=== PATIENT | male | born 1935 | race Caucasian/White ===

== ENCOUNTER 2023-11-30 17:54 | Inpatient (IN) | payer OTHER, SELFPAY ==
[2023-11-30] VITALS (7 sets, daily range): BP systolic 132–170; BP diastolic 54–96; BMI 27.5
[2023-11-30 14:34] LABS: % Basophils 0.3 % (0-2); % Eosinophils 0.8 % (0-6); % Immature Granulocytes 0.3 % (0-0.5); % Lymphocytes 29.7 % (20.5-51.1); % Monocytes 6.3 % (1.7-9.3); % Neutrophils 62.6 % (42.2-75.2); Absolute Eosinophils 0.1 10^3/uL (0-0.7); Absolute Lymphocytes 2.2 10^3/uL (1.2-3.4); Absolute Monocytes 0.5 10^3/uL (0.1-0.6); Absolute Neutrophils 4.6 10^3/uL (1.4-6.5); Hemoglobin 14.3 g/dL (13.0-18.0); Mean Corp Hgb Conc. 36.7 g/dL (33.0-37.0); Mean Corpuscular Hgb 33.7 pg (27.0-31.0); Mean Platelet Volume 10.8 fL (7.4-10.4); Nucleated Red Blood Cells % 0 % (-); Platelet Count 225 10^3/uL (130-400); Red Blood Cell Count 4.24 10^6/uL (4.70-6.10); Red Cell Dist. Width 13.5 % (11.5-14.5); White Blood Cell Count 7.3 10^3/uL (4.8-10.8)
[2023-11-30 14:38] LABS: INR 1.33; PT 16.3 Sec (11.4-14.6)
[2023-11-30 14:39] LABS: APTT 33.8 Sec (23.4-35.0)
[2023-11-30 14:48] LABS: ALT (SGPT) 24 U/L (0-50); AST (SGOT) 33 U/L (17-59); Albumin 4.5 g/dl (3.5-5.0); Alkaline Phosphatase 84 U/L (38-126); Blood Urea Nitrogen 22 mg/dl (9-20); Calcium 9.5 mg/dl (8.4-10.2); Carbon Dioxide 30 mmol/L (22-30); Chloride 102 mmol/L (98-107); Glucose 96 mg/dl (70-99); Potassium 4.1 mmol/L (3.5-5.1); Sodium 137 mmol/L (135-145); Total Bilirubin 0.9 mg/dl (0.2-1.3); Total Protein 7.5 g/dl (6.3-8.2); eGFR 53.17
[2023-11-30 15:00] LABS: Troponin I < 0.012 ng/ml
--- NOTE | 2023-11-30 15:30 | ED.GENMED ---
History of Present Illness
General
Chief Complaint: Breathing Problem
Time Seen by Provider: 11/30/23 15:20
Travel History
Have you had any contact with someone who has COVID-19?: No
Do you have any symptoms of coronavirus? Fever > 100 degrees, chills, cough, shortness of breath, sore throat, loss of taste or smell, muscle aches, or headache?: No
History of Present Illness
History of Present Illness:
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 The patient's had 1
month of exertional chest pain that resolves at rest. He he had an outpatient nuclear stress test that showed abnormal wall motion and thus he was sent to the emergency department. He is not affiliated with any [facility] groups.
Denies any current chest pain at rest. Did take his Eliquis this morning
Review of Systems
Review of Systems
Allergies reviewed?: Yes
All Other Systems: ROS reviewed and negative except as documented in HPI and ROS
Phy Exam
Physical Exam
Physical Exam:
GEN: Well appearing, NAD, WDWN
HEENT: Oral mucosa moist, no scleral icterus
Cardiac: Regular rate
Lung: No respiratory distress, no tachypnea
MSK: No gross deformity or injuries
Skin: Good color, no pallor or jaundice, no rashes
Neuro: AO x3, moves all extremities freely
Psych: Calm, cooperative
Scores
Heart Failure Risk
Heart Failure Risk Score: Not Applicable
Course
Orders/Labs/Results
Orders:
Orders
11/30/23 14:01
Electrocardiogram (*1) Urgent
Reason for Study: Bradycardia / Tachycardia
EKG- Treatment ONCE
11/30/23 14:12
Complete Blood Count/With Diff Urgent
Comprehensive Metabolic Panel Urgent
Protime/PTT Urgent
Troponin I Urgent
11/30/23 16:16
Aspirin 325 mg PO NOW STA
11/30/23 16:43
Admit/Transfer Patient As Directed
Co-Sign Provider:
Level of Care: Inpatient admission
Assign to:: IVU
Physician / Group: Dr. Sykes
Diagnosis: unstable angina
Reason for Hospitalization: unstable angina
Expected length of stay greater than two midnights?: Yes
ELOS- Estimated Length of Stay in days: 3
I certify the patient meets the requirements for IP care: Yes
11/30/23 17:01
PTT Urgent
Comment: Obtain baseline before beginning heparin infusion if not already collected
Heparin 4,000 units IV NOW STA
Heparin Protocol- PTT Orders As Directed
PTT per Heparin protocol: -Obtain CBC and baseline PTT - if not already collected.
-Obtain PTT 6 hours from start of infusion. Then, every 6 hours until 2 consecutive
PTT's are therapeutic. Then, PTT Daily.
-With each rate change, obtain PTT every 6 hours until 2 consecutive PTT's are
therapeutic. Then, PTT Daily.
Notify MD As Directed
Notify physician if: PTT is greater than or equal to 200.
11/30/23 17:15
Heparin 20714 Units/250 ml 25,000 units in 250 ml IV PER PROTOCOL
Weight to be used for heparin protocol in kilograms (kg):: 76.1
Protocol:: Cardiac Tx/Acute Coronary
PTT Goal Range to be used:: PTT 73 to 111 seconds
Order type:: Initial
INITIAL Infusion Dose (UNITS/KG/hr) & then follow protocol:: 12 units/kg/hr
Infusion Dose in UNITS/hr & then follow protocol (UNITS/hr):: 900
INFUSION RATE in mL/hr & then follow protocol (mL/hr):: 9
PTT less than or equal to 64 seconds:: Increase rate by 200 units/hr (+ 2 mL/hr)
PTT 64.1 to 72.9 seconds:: Increase rate by 100 units/hr (+ 1 mL/hr)
PTT 73 to 111 seconds:: Target Range. No change in rate.
PTT 111.1 to 130.9 seconds:: Decrease rate by 100 units/hr (- 1 mL/hr)
PTT 131 to 199.9 seconds:: HOLD for 1 hr. Then decrease rate by 200 units/hr (- 2 mL/hr)
PTT greater than or equal to 200 seconds:: HOLD for 2 hrs & Notify Provider. Then decrease by 200 units/hr (-
2 mL/hr)
Lab follow-up:: Each change, PTT q6h until 2 consecutive are therapeutic. Then PTT
daily.
12/01/23 08:00
Aspirin Chewable [Low Strength Aspirin] 81 mg PO DAILY
12/02/23 06:00
Complete Blood Count/No Diff Q2D
Comment: Notify MD if platelet count is <130,000 or decreases by 50% from baseline
12/04/23 06:00
Complete Blood Count/No Diff Q2D
Comment: Notify MD if platelet count is <130,000 or decreases by 50% from baseline
12/06/23 06:00
Complete Blood Count/No Diff Q2D
Comment: Notify MD if platelet count is <130,000 or decreases by 50% from baseline
12/08/23 06:00
Complete Blood Count/No Diff Q2D
Comment: Notify MD if platelet count is <130,000 or decreases by 50% from baseline
12/10/23 06:00
Complete Blood Count/No Diff Q2D
Comment: Notify MD if platelet count is <130,000 or decreases by 50% from baseline
12/12/23 06:00
Complete Blood Count/No Diff Q2D
Comment: Notify MD if platelet count is <130,000 or decreases by 50% from baseline
12/14/23 06:00
Complete Blood Count/No Diff Q2D
Comment: Notify MD if platelet count is <130,000 or decreases by 50% from baseline
12/16/23 06:00
Complete Blood Count/No Diff Q2D
Comment: Notify MD if platelet count is <130,000 or decreases by 50% from baseline
Abnormal Lab Results
11/30/23
14:12
RBC 4.24 L 10^6/uL
(4.70-6.10)
MCH 33.7 H pg
(27.0-31.0)
MPV 10.8 H fL
(7.4-10.4)
PT 16.3 H Sec
(11.4-14.6)
BUN 22 H mg/dl
(9-20)
11/30/23 14:12
11/30/23 14:12
Vital Signs
Initial and Last Documented VS:
Initial Vital Signs
Temp Pulse Resp BP Pulse Ox
97.2 F 45 18 154/79 100
11/30/23 14:00 11/30/23 14:00 11/30/23 14:00 11/30/23 14:00 11/30/23 14:00
Last Documented Vital Signs
Temp Pulse Resp BP Pulse Ox
97.2 F 46 17 149/96 100
11/30/23 14:00 11/30/23 15:38 11/30/23 15:38 11/30/23 15:38 11/30/23 15:38
MDM/Problems Addressed
MDM/Problems Addressed:
Due to abnormal stress test the patient will require admission to the cardiology service for intervention
Comment
Comment:
EKG independently interpreted by me shows a sinus bradycardia at [address] changes concerning for acute ischemia
*Critical Care Note
Total Time (30-74mins, 75-104mins- exclusive of procedures): Not Applicable
ED Attending Note
-
Portions of this chart may have been created with voice recognition software.� Occasional wrong word or��sound alike� substitutions may have occurred due to the inherent limitations of voice recognition software.
Discharge Plan
Departure
Patient Disposition: Admit
Date of Disposition: 11/30/23
Time of Disposition: 15:30
Admit to: IVU
Presentation/result/management discussed w/ accepting MD/DO: Cardiology
Discharge Problem:
Stable angina
Interventions
Interventions:
*Risk Screen - Suicide Last Done: 11/30/23 14:00
*General Assessment Last Done: 11/30/23 14:00
*Neglect/Abuse Screening Last Done: 11/30/23 14:00
ED- Fall Risk Assessment Last Done: 11/30/23 15:36
*ED COVID-19 Vaccine History Last Done: 11/30/23 14:00
ED- Cardiac Assessment Last Done: 11/30/23 15:36
ED- Pulmonary Assessment Last Done: 11/30/23 15:36
--- NOTE | 2023-11-30 15:58 | PHANOTE ---
11/30/2023, [employer] rec tech, spoke to pt. to obtain their med. history; pt. states to be taking Dupixent 300 mg SC [id number] and Restasis 0.05% (1 drop both eyes BID); however, I could not find these meds. in pharmacy fill data and pt. has no [facility] records
so I could not confirm them.
--- NOTE | 2023-11-30 16:29 | HPS.HSE ---
Addendum entered and electronically signed by Bunny Sykes MD 11/30/23 17:10:
88 yo male with PMH of paroxysmal A fib, heart murmur, presents to ED with history of DAVILA and chest discomfort on exertion. He had a stress test today at [facility] with reversible anterior defect consistent with ischemia in LAD territory. Exam
with RRR, III/ systolic murmur at apex, and no edema. I reviewed the stress test images. Cr 1.3.
Unstable angina. Hold eliquis. ASA 324mg and heparin drip. Plan for cath tomorrow.
We have requested a copy of his recent echo from last week given heart murmur on exam.
Original Note:
Family Physician
-
Family Physician: Ana Ridley NP
Chief Complaint
-
chest discomfort, abnormal stress test
History of Present Illness
88 y/o male with hypertension, AFIB on Eliquis (paroxysmal), hx prostate CA 2000 (hx radiation), gastritis on PPI, bradycardia, who has been having chest discomfort and DAVILA for about 1 year, but then over the past 3-4 weeks it has worsened and
become more noticeable. Once, it even happened at night at rest, but resolved after 3-5 minutes without intervention. Today, he went for a stress test, which showed reversible anterior defect and his woods laborer, Dr. Denis sent him to the
[facility].
Medical History
Past Medical History
Past Medical History: Reports Cancer, HTN and Other (as above)
Past Surgical History: Reports None
Social History
Tobacco: Former Smoker (pipe quit 1999)
Alcohol: Occasional
Personal:
Living: With Family
Family History
Family History: Early CAD (mom [place] age 59)
Allergies / Home Medications
Allergies reflects when Allergies were last updated in [facility].
Home Medications with original date entered in [employer]
Allergy/Medication List:
Allergies: denies
Medications: Eliquis 5 mg PO BID, guaifenesin 400 mg PO daily, metoprolol succinate 12.5 mg PO daily, omeprazole 20 mg PO daily, lisinopril/HCTZ 1 tab PO daily
Review of Systems
-
History Source: Patient
A 12 point ROS was completed and negative except as noted: Yes
Respiratory: Reports Trouble Breathing
Cardiac: Reports Chest Pain
Physical Exam
Vital Signs
Vital Signs
Temp Pulse Resp BP Pulse Ox
97.2 F 46 17 149/96 100
11/30/23 14:00 11/30/23 15:38 11/30/23 15:38 11/30/23 15:38 11/30/23 15:38
Physical Exam
General: Well Developed, Well Nourished and No Apparent Distress
HEENT: NormoCephalic and Anicteric
Respiratory: Clear and Non Labored Respirations
Cardiac: Regular Rhythm and Murmur
GI: Soft, Non Tender and Normal Bowel Sounds
Skin: Warm and Dry
Neuro: AO x 3
Psych: Calm
Laboratory Results
-
11/30/23 14:12
11/30/23 14:12
Laboratory Results
PT 16.3 Sec (11.4-14.6) H 11/30/23 14:12
INR 1.33 11/30/23 14:12
APTT 33.8 Sec (23.4-35.0) 11/30/23 14:12
Total Bilirubin 0.9 mg/dl (0.2-1.3) 11/30/23 14:12
AST 33 U/L (17-59) 11/30/23 14:12
ALT 24 U/L (0-50) 11/30/23 14:12
Alkaline Phosphatase 84 U/L (38-126) 11/30/23 14:12
Troponin I < 0.012 ng/ml 11/30/23 14:12
Data Reviewed
-
Medical Tests (Nuc Med, Echo, EKG etc): Image Personally Visualized and interpreted (EKG SB 47 BPM, NSST/T abnormality) and Other (stress test images reviewed by Dr. Sykes)
Lab Data: Labs Reviewed by me
Impression/Plan
-
IMPRESSION/PLAN:
Unstable angina:
-this diagnosis is threat to life
-patient with typical angina, that has been progressing over the past 3-4 weeks
-now with stress imaging with reversible anterior defect (images in chart)
-no CP currently
-ASA full dose now, then 81 mg daily
-start heparin gtt, which requires intensive monitoring for toxicity
-add statin, as well as lipids, hgbA1C
-cath tomorrow- last dose Eliquis this AM
-check echo- murmur noted as well
-follow trops, EKG's
PAF:
-stable in SB
-continue low dose metoprolol
-hold Eliquis for cath- last dose this AM. [id number] score is 4 for age, HTN, and now CAD.
-start heparin drip as above
HTN:
-continue ACEI/HCTZ/BB and follow
[2023-11-30] MEDS: ASPIRIN 325 MG PO (16:42)
[2023-11-30] MEDS: HEPARIN 4000 UNITS IV (18:36)
[2023-11-30] MEDS: HEPARIN 25000 UNITS/250 ML IV (18:42)
[2023-11-30 18:57] LABS: APTT 33.7 Sec (23.4-35.0)
--- NOTE | 2023-11-30 19:45 | PTCARENOTE ---
received pt from ED into IVU rm [id number]. heparin gtt infusing per order in PIV. pt A&Ox4. pt denies pain at this time. sinus asael on tele-monitor. palpable peripheral pulses. no edema noted. lungs clear on auscultation. POX 100% on RA. abd s/n. +BS.
voiding in toilet. see worklist for complete nursing assessment, interventions, VS, and I&Os.
[2023-11-30] MEDS: LIPITOR 40 MG PO (21:30)
[2023-11-30 21:32] LABS: Troponin I 0.014 ng/ml
[2023-12-01] VITALS (19 sets, daily range): BP systolic 138–185; BP diastolic 61–80
[2023-12-01 00:59] LABS: APTT 181.8 Sec (23.4-35.0)
[2023-12-01 01:01] LABS: Troponin I 0.016 ng/ml
[2023-12-01 05:17] LABS: Hematocrit 38.4 % (39.0-52.0); Mean Corp Hgb Conc. 36.5 g/dL (33.0-37.0); Mean Corpuscular Hgb 34.2 pg (27.0-31.0); Mean Corpuscular Volume 93.9 fL (80.0-94.0); Mean Platelet Volume 10.7 fL (7.4-10.4); Platelet Count 203 10^3/uL (130-400); Red Blood Cell Count 4.09 10^6/uL (4.70-6.10); Red Cell Dist. Width 13.2 % (11.5-14.5); White Blood Cell Count 6.4 10^3/uL (4.8-10.8)
[2023-12-01 05:49] LABS: Blood Urea Nitrogen 26 mg/dl (9-20); Calcium 9.3 mg/dl (8.4-10.2); Carbon Dioxide 27 mmol/L (22-30); Chloride 101 mmol/L (98-107); Estimated Creatinine Clearance 38 ml/min; Glucose 98 mg/dl (70-99); HDL Cholesterol 37 mg/dl; LDL Cholesterol, Calculated 99 mg/dl; Potassium 4.1 mmol/L (3.5-5.1); Sodium 136 mmol/L (135-145); Total Cholesterol 160 mg/dl (50-199); Triglyceride 120 mg/dl (10-149); Very Low Density Lipoprotein 24 mg/dl (0-30); eGFR 58.53
--- NOTE | 2023-12-01 07:21 | ITS.CL.CATH ---
Salvage Inspector - Catheterization
Cardiac Catheterization
Procedure Report:
CARDIAC CATHETERIZATION REPORT
Date of Procedure: 12/01/2023
Referring: Clyde Denis DO
Indication: Unstable angina with recent ischemic stress test and underlying hypertrophic obstructive cardiomyopathy
HEMODYNAMIC DATA
AO: 107/60
LV: 221/15
There is a 114 mmHg resting gradient across the left ventricular outflow tract.
LEFT VENTRICULOGRAPHY: Not done
CORONARY ANGIOGRAPHY
Dominance: Right
Left Main: Normal
LAD: 99% mid LAD stenosis distal to the takeoff of the first septal supervisor [employer] and first diagonal branch. There is DICKSON II flow to the apical LAD. There is a second area of mid LAD stenosis immediately distal to the takeoff of the large second
diagonal branch.
Circumflex: 30% mid circumflex stenosis distal to the takeoff of the large OM 2. The remainder the circumflex system has mild luminal irregularities.
RCA: Dominant vessel with 20% proximal and 30-40% mid stenoses. The RCA terminates with a large PDA.
Angioplasty: At the conclusion the diagnostic study, the patient underwent LAD PCI. Heparin was used for anticoagulation. Plavix 600 mg was administered to the procedure conclusion. A 6 Faroese EBU 3.75 guide catheter was advanced to the left
coronary ostium. A BMW wire was advanced into the distal LAD. A second BMW was advanced into the large D2 as we would need to cover the origin of D2 with the stent. Direct stenting with a 3.25 x 23 Xience DEBBIE deployed at 14 laura to cover both
lesions was followed by postdilatation with a 3.25 NC trek to 17 laura along the entire length of the stent. We then used a 3.5 x 8 NC trek to post dilate to 14 laura most proximally, 10 laura in the midportion, and 8 8 laura more distally. The final
angiographic result was outstanding. Plaque shift into the large diagonal branch did not cause decremental flow.
Closure Device: None-the procedure was performed via the right radial artery. The Fly's test was normal prior to the procedure.
Radiation (mGy): 290
DAP (cm2.Gy): 17.4
Fluoroscopy time: 8.6 minutes
CONCLUSIONS
1: Hypertrophic obstructive cardiomyopathy with resting gradient 114 mmHg
2: Severe single-vessel LAD disease as described
3. Successful stenting of 99% and 60% mid LAD lesions using a single 3.25 x 23 Xience DEBBIE postdilated with a 3.25 noncompliant balloon followed by a 3.5 noncompliant balloon
4. We will treat with triple therapy (Eliquis, aspirin, Plavix) for 1 week then Eliquis/Plavix for 12 months
Copy to: Clyde Denis DO, GLEN Fried ([place], [place])
Arron Murphy MD, FACC, [facility]
[2023-12-01] MEDS: LOW STRENGTH ASPIRIN 81 MG PO (07:44)
[2023-12-01] MEDS: TOPROL XL 12.5 MG PO (07:44)
[2023-12-01] MEDS: ZESTRIL 10 MG PO (07:44)
[2023-12-01] MEDS: PROTONIX 40 MG PO (07:44)
[2023-12-01] MEDS: ORETIC 12.5 MG PO (07:44)
[2023-12-01] MEDS: THERAGRAN 1 TABLET PO (07:45)
[2023-12-01] MEDS: MUCINEX 600 MG PO (07:45)
--- NOTE | 2023-12-01 08:27 | PTCARENOTE ---
Rec'd pt from prev nsg shift AAOx3 w/no c/o CP or SOB. VS stable. Pt w/Heparin drip was infusing as ordered & stopped at 0810 when vat house laborer RNs came to take pt for cardiac cath. Report given to Joann from the vat house laborer. Pt transported in bed. Plan
of care ongoing.
[2023-12-01 08:37] LABS: Glycohemoglobin (HgbA1c) 5.6 % (4.0-5.6)
[2023-12-01 08:49] LABS: ACT-LR - POC 305 Seconds (116-155)
--- NOTE | 2023-12-01 09:20 | PTCARENOTE ---
Rec'd report from Joann in laborer heading & rec'd pt back in the room at approx 9:25am. Pt AAOx3 but a little 'foggy'. Pt's had called & stated that the pt 'usually has delayed arousal post procedures'. Pt stated he 'feels off' & that 'he didn't
remember getting anesthesia or the procedure'. Pt reports no CP or SOB. R radial band in place w/SpO2 of 92-95% on RA. Discussed bedrest for now w/pt & when the R band would be removed. Pt agrees w/plan of care. Call gar within reach & plan of care
ongoing.
--- NOTE | 2023-12-01 11:13 | CM ---
Chart reviewed. Patient is independent of ADL, lives with his in a [address], 0 KIMBERLY, 0 DME. Patient is not current with VN and is not interested. Patient currently with no discharge needs. Plan is for the patient to return home. CM to follow
[2023-12-01] MEDS: TYLENOL 650 MG PO (13:40)
--- NOTE | 2023-12-01 17:32 | PTCARENOTE ---
Pt w/1 episode of N&V after eating a large post cath. Pt encouraged to try some sips of gingerale & eat a barrel turner dinner later in the day until meds rec'd during his cardiac cath are out of his system. Pt w/no c/o CP but did have a mild 4/10
anterior headache for which PRN Tylenol was administered as ordered. Plan of care ongoing.
[2023-12-01] MEDS: LIPITOR 40 MG PO (18:30)
--- NOTE | 2023-12-01 20:00 | PTCARENOTE ---
resumed care of patient. VSS. cath site c/d/i. remains SB with HR 40s. 99% RA. patient reports nausea went away. BRP. R AC PIV flushed and patent. Will continue to monitor.
[2023-12-01] MEDS: ELIQUIS 5 MG PO (20:47)
--- NOTE | 2023-12-02 01:00 | PTCARENOTE ---
Received patient at 2300 resting in bed, VSS, dressing right wrist dry and intact with no signs of bleeding or hematoma.
[2023-12-02 04:56] VITALS: BP 141/58
[2023-12-02 06:11] LABS: Hematocrit 40.9 % (39.0-52.0); Hemoglobin 14.5 g/dL (13.0-18.0); Mean Corp Hgb Conc. 35.5 g/dL (33.0-37.0); Mean Corpuscular Hgb 33.3 pg (27.0-31.0); Platelet Count 229 10^3/uL (130-400); Red Blood Cell Count 4.35 10^6/uL (4.70-6.10); White Blood Cell Count 8.2 10^3/uL (4.8-10.8)
[2023-12-02 06:35] LABS: Blood Urea Nitrogen 19 mg/dl (9-20); Carbon Dioxide 30 mmol/L (22-30); Chloride 98 mmol/L (98-107); Estimated Creatinine Clearance 35 ml/min; Glucose 101 mg/dl (70-99); HDL Cholesterol 40 mg/dl; LDL Cholesterol, Calculated 89 mg/dl; Potassium 4.7 mmol/L (3.5-5.1); Sodium 138 mmol/L (135-145); Total Cholesterol 165 mg/dl (50-199); Triglyceride 182 mg/dl (10-149); Very Low Density Lipoprotein 36 mg/dl (0-30); eGFR 53.17
[2023-12-02 07:37] VITALS: BP 108/63
[2023-12-02] MEDS: ORETIC 12.5 MG PO (07:39)
[2023-12-02] MEDS: PLAVIX 75 MG PO (07:39)
[2023-12-02] MEDS: PROTONIX 40 MG PO (07:39)
[2023-12-02] MEDS: ELIQUIS 5 MG PO (07:39)
[2023-12-02] MEDS: THERAGRAN 1 TABLET PO (07:39)
[2023-12-02] MEDS: MUCINEX 600 MG PO (07:39)
[2023-12-02] MEDS: LOW STRENGTH ASPIRIN 81 MG PO (07:39)
[2023-12-02] MEDS: ZESTRIL 10 MG PO (07:40)
[2023-12-02] MEDS: FLUSH (NSS) 1 FLUSH IV (07:40)
--- NOTE | 2023-12-02 08:37 | W.PN.CARDCBS ---
Addendum entered and electronically signed by Rosas Hayes MD 12/02/23 09:29:
I saw and examined the patient.
The SEWER AND DRAIN TECHNICIAN or PA's note was reviewed and I agree with the note.
Comment: 88M with chest pain admitted for elective C. Now s/p PCI LAD
- DAPT
- statin
- right radial C/D/I
- asael is asymptomatic
- OK for d/c
Original Note:
Today's Communication / Plan
-
cardiac rehab
followup w/[facility]
home today
Impression / Plan
-
PCP: Ana Ridley NP
CDY: Clyde Denis MD
88 y/o, PMH PAF on eliquis, gastritis, bradycardia, remote prostate CA, FH CAD. Presents w/1 year history SOB/DAVILA/chest discomfort that is now progressive with increased frequency and occurring at rest. NST with anterior ischemia and was referred to
[facility]. [facility] on 12/01- 99% mid LAD stenosis, s/p angioplasty/DEBBIE. Residual Lcx and RCA for medical management.
IMPRESSION/PLAN:
ACS/CAD
s/p LAD PCI
residual LCx, RCA disease
will be on triple therapy for 1 week w/asa, plavix, eliquis- then plavix/eliquis only
known bradycardia- rates 40-50s- Toprol XL 12.5 daily- up to 80-90s with ambulation
lipid profile noted- started on atorvastatin 40/d
cardiac rehab
followup w/ Dr. Smart at d/c
PAF- [id number]=5
maintained on eliquis
triples as above
Gastritis- stop omeprazole, start protonix
Progress Note - Escrow Assistant
Subjective
Date of Service: December 02, 2023
Denies cp/palps/dypsnea
oob ambulating
cath site stable
Objective
Labs:
12/02/23 05:12
12/02/23 05:12
Labs
Hgb 14.5 g/dL (13.0-18.0) 12/02/23 05:12
Hct 40.9 % (39.0-52.0) 12/02/23 05:12
Plt Count 229 10^3/uL (130-400) 12/02/23 05:12
PT 16.3 Sec (11.4-14.6) H 11/30/23 14:12
INR 1.33 11/30/23 14:12
APTT Cancelled 12/01/23 08:05
Sodium 138 mmol/L (135-145) 12/02/23 05:12
Potassium 4.7 mmol/L (3.5-5.1) 12/02/23 05:12
BUN 19 mg/dl (9-20) 12/02/23 05:12
Creatinine 1.3 mg/dL (0.7-1.3) 12/02/23 05:12
Glucose 101 mg/dl (70-99) H 12/02/23 05:12
Troponins
11/30/23 11/30/23 12/01/23
14:12 20:55 00:26
Troponin I < 0.012 0.014 0.016
Vital Signs and I&O:
Vital Signs
Temp Pulse Resp BP Pulse Ox
98.2 F 41 16 108/63 97
12/02/23 07:37 12/02/23 07:37 12/02/23 07:37 12/02/23 07:37 12/02/23 07:37
Vital Signs
Temp Pulse Resp BP Pulse Ox
98.2 F 41 16 108/63 97
12/02/23 07:37 12/02/23 07:37 12/02/23 07:37 12/02/23 07:37 12/02/23 07:37
Intake & Output
11/30/23 12/01/23 12/02/23 12/03/23
06:59 06:59 06:59 06:59
Intake Total 45 / 45 480 / 480
Balance 45 / 45 480 / 480
Physical Exam
Physical Exam
AAOx3, MAEE 5/5
RRR S1 S2 no murmurs
CTA bilat, non labored
soft abd, + bs
right radial cath site BERENICE, no ht/bleeding, non tender
bilat extremities w/palpable distal pulses, no edema
--- NOTE | 2023-12-02 11:54 | W.DS.TRANS ---
DC Summary - Supervisor Beam Department
-
Discharge Instructions:
Discharge Diagnosis/Procedures Angioplasty with stent to Left Anterior
Descending artery
Diet Low Cholesterol
Driving Restrictions No driving for 24 hours
Other Services Cardiac Rehab
Stop these medications: Stop Omeprazole- interacts with plavix- you will
be on Protonix
Instructions:
Stand-Alone Forms: DC Instructions- Cath/EP Lab
Changes to Home Medications: Yes
Discharge Medications:
DC Medications w/original date entered in [employer]
Fish Oil 1 cap PO DAILY 11/30/23
acetaminophen 500 mg tablet (Tylenol Extra Strength) 500 mg PO BIDPRN PRN mild pain 11/30/23
apixaban 5 mg tablet (Eliquis) 5 mg PO BID 11/30/23
cholecalciferol (vitamin D3) 25 mcg (1,000 unit) tablet 25 mcg PO DAILY 11/30/23
cyclosporine 0.05 % eye drops in a dropperette (Restasis) 1 drp BOTH EYES BID 11/30/23
dupilumab 300 mg/2 mL subcutaneous syringe (Dupixent) 300 mg SC Q2W 11/30/23
guaifenesin 400 mg tablet 400 mg PO DAILY 11/30/23
lisinopril 10 mg-hydrochlorothiazide 12.5 mg tablet 1 tab PO DAILY 11/30/23
magnesium 250 mg tablet 250 mg PO HS 11/30/23
metoprolol succinate 25 mg tablet,extended release 24 hr 12.5 mg PO DAILY 11/30/23
pxlgirlopuff-haemqres-gznjgj tablet 1 tab PO DAILY 11/30/23
potassium 1 tab PO HS 11/30/23
psyllium 2 tsp PO DAILY 11/30/23
turmeric 400 mg capsule 800 mg PO DAILY 11/30/23
vitamin A-vitamin C-vit E-min tablet 1 tab PO BID 11/30/23
aspirin 81 mg chewable tablet (Children's Aspirin) 81 mg PO DAILY #1 tab 12/02/23
atorvastatin 40 mg tablet 40 mg PO QPM #90 tabs 12/02/23
clopidogrel 75 mg tablet 75 mg PO DAILY #90 tabs 12/02/23
nitroglycerin 0.4 mg sublingual tablet 0.4 mg sublingual [id number] PRN chest pain #25 tabs 12/02/23
pantoprazole 40 mg tablet,delayed release 40 mg PO DAILY #90 tabs 12/02/23
Home Medication Changes
NEW: aspirin, plavix, atorvastatin, protonix, nitroglycerin
Pending Results: No
[2023-12-02 12:09] VITALS: BP 123/70
== END 2023-12-02 15:07 | disposition home or self-care (01) | DRG 322 ==
LOC: IVU 17:54
PROVIDERS: Internal Medicine Cardiovascular Disease; Nurse Practitioner; Nurse Practitioner Adult Health; Physician Assistant; ADMITTING PHYSICIAN Internal Medicine; EMERGENCY PHYSICIAN Emergency Medicine; FAMILY PHYSICIAN Nurse Practitioner Family
PROC: B2111ZZ Fluoroscopy of Multiple Coronary Arteries using Low Osmolar Contrast (ICD-10-PCS; 2023-12-01)
PROC: 027034Z Dilation of Coronary Artery, One Artery with Drug-eluting Intraluminal Device, Percutaneous Approach (ICD-10-PCS; 2023-12-01)
PROC: 4A023N7 Measurement of Cardiac Sampling and Pressure, Left Heart, Percutaneous Approach (ICD-10-PCS; 2023-12-01)
DX: I25.110 Atherosclerotic heart disease of native coronary artery with unstable angina pectoris (principal); I24.9 Acute ischemic heart disease, unspecified; I42.1 Obstructive hypertrophic cardiomyopathy; Z87.891 Personal history of nicotine dependence; I48.0 Paroxysmal atrial fibrillation; I10 Essential (primary) hypertension; K29.70 Gastritis, unspecified, without bleeding; Z79.01 Long term (current) use of anticoagulants
CPT/HCPCS: 80048; 80053; 80061; 83036; 84484; 85025; 85027; 85347; 85610; 85730; 93005; 93458; 99285; C1725; C1769; C1874; C1894; C9600; Q9967

== ENCOUNTER 2024-01-21 10:51 | Outpatient (RCR) | payer OTHER, SELFPAY | END 2024-01-21 23:59 | disposition home or self-care (01) | LOC: CRHB 10:51 | PROVIDERS: ATTENDING PHYSICIAN Internal Medicine Cardiovascular Disease | DX: I25.10 Atherosclerotic heart disease of native coronary artery without angina pectoris (principal); Z95.5 Presence of coronary angioplasty implant and graft | CPT/HCPCS: G0422; G0423 ==

== ENCOUNTER 2024-02-23 09:30 | Outpatient (RCR) | payer OTHER, SELFPAY | END 2024-02-23 23:59 | disposition home or self-care (01) | LOC: CRHB 09:30 | PROVIDERS: ATTENDING PHYSICIAN Internal Medicine Cardiovascular Disease | DX: Z95.5 Presence of coronary angioplasty implant and graft (principal); I25.10 Atherosclerotic heart disease of native coronary artery without angina pectoris | CPT/HCPCS: G0422; G0423 ==

== ENCOUNTER 2024-03-24 10:26 | Outpatient (RCR) | payer OTHER, SELFPAY | END 2024-03-24 23:59 | disposition home or self-care (01) | LOC: CRHB 10:26 | PROVIDERS: ATTENDING PHYSICIAN Internal Medicine Cardiovascular Disease | DX: Z95.5 Presence of coronary angioplasty implant and graft (principal); I25.10 Atherosclerotic heart disease of native coronary artery without angina pectoris | CPT/HCPCS: G0422; G0423 ==

== ENCOUNTER 2024-04-19 11:44 | Outpatient (RCR) | payer OTHER, SELFPAY | END 2024-04-19 23:59 | disposition home or self-care (01) | LOC: CRHB 11:44 | PROVIDERS: ATTENDING PHYSICIAN Internal Medicine Cardiovascular Disease | DX: I25.10 Atherosclerotic heart disease of native coronary artery without angina pectoris (principal); Z95.5 Presence of coronary angioplasty implant and graft | CPT/HCPCS: G0422; G0423 ==

== ENCOUNTER 2024-05-10 11:04 | Outpatient (RCR) | payer OTHER, SELFPAY | END 2024-05-10 23:59 | disposition home or self-care (01) | LOC: CRHB 11:04 | PROVIDERS: ATTENDING PHYSICIAN Internal Medicine Cardiovascular Disease | DX: I25.10 Atherosclerotic heart disease of native coronary artery without angina pectoris (principal); Z95.5 Presence of coronary angioplasty implant and graft | CPT/HCPCS: G0422; G0423 ==